=== PATIENT | female | born 1930 | race Caucasian/White ===

== ENCOUNTER 2017-05-03 18:13 | Emergency (ER) | payer OTHER ==
[2017-05-03 18:49] VITALS: TEMP 98.1; O2SAT 93
--- NOTE | 2017-05-03 19:12 | EDPHY ---
H & P Stated Complaint: Tongue swelling x 4 hours Time Seen by Provider: 05/03/17 19:05 HPI/ROS: CHIEF COMPLAINT: Tongue swelling HISTORY OF PRESENT ILLNESS: This patient is an 87 year old female with a history of angioedema complaining of tongue swelling onset this afternoon around 3:30. She ate a sandwich and thought her tongue felt strange, so looked in the mirror and noted it was swollen. Her throat felt swollen as well. She has history of allergies to various medications. She has been taking Simvastatin for the last 2-3 years, and usually becomes allergic to medications after 2-3 years. She is currently taking Lasix, thyroid medication, and Atenolol as well. No recent change in medications. She plans to discontinue all four of her medications. She denies rash, shortness of breath, dizziness, chest pressure. REVIEW OF SYSTEMS: A 10 point review of systems was performed and is negative with the exception of the elements mentioned in the history of present illness. - Personal History Current Tetanus/Diphtheria Vaccine: Yes Current Tetanus Diphtheria and Acellular Pertussis (TDAP): Yes - Medical/Surgical History PMH: 1. Hypertension 2. Hyperlipidemia 3. Hypothyroid Hx Asthma: No Hx Chronic Respiratory Disease: No Hx Diabetes: No Hx Cardiac Disease: No Hx Renal Disease: No Hx Cirrhosis: No Hx Alcoholism: No Hx HIV/AIDS: No Hx Splenectomy or Spleen Trauma: No Other PMH: HTN, HYPERLIPIDEMIA, PNA - Social History Smoking Status: Never smoked Additional Social History: Lives in [place]. . Retired. - Physical Exam Exam: General Appearance: Alert, pleasant and smiling, no distress Eyes: Pupils equal and round, no periorbital swelling ENT, Mouth: Mucous membranes moist, no oral swelling. Tongue does not appear swollen. Neck: Normal inspection, no stridor Respiratory: Lungs are clear to auscultation, no wheezing Cardiovascular: Regular rate and rhythm Neurological: A&O, nonfocal, normal gait Skin: No hives Extremities: No swelling Psychiatric: Mood and affect normal Constitutional: Initial Vital Signs Temperature (C) 36.7 C 05/03/17 18:45 Heart Rate 79 05/03/17 18:45 Respiratory Rate 15 05/03/17 18:45 Blood Pressure 198/100 H 05/03/17 18:45 O2 Sat (%) 93 09/29/17 18:45 O2 Delivery Mode Room Air Allergies/Adverse Reactions: amlodipine Allergy (Severe, Verified 08/14/14 10:27) THROAT/TONGUE SWELLING erythromycin base Allergy (Severe, Verified 08/14/14 10:27) LOSS OF VISION lisinopril Allergy (Severe, Verified 08/14/14 10:27) THROAT/TONGUE SWELLING Penicillins Allergy (Severe, Verified 08/14/14 10:27) Anaphylaxis Sulfa (Sulfonamide Antibiotics) Allergy (Severe, Verified 08/14/14 10:27) Anaphylaxis sulfamethoxazole [From Bactrim] Allergy (Severe, Verified 08/14/14 10:27) Anaphylaxis trimethoprim [From Bactrim] Allergy (Severe, Verified 08/14/14 10:27) Anaphylaxis Home Medications: Medication Instructions Recorded Aspirin [Aspirin 81mg (*)] 81 mg PO DAILY 08/14/14 Atenolol [Tenormin 25 mg (*)] 25 mg PO DAILY 08/14/14 Ethacrynic Acid [Edecrin 25 MG (*)] 25 mg PO DAILY 08/14/14 Ibuprofen [Motrin (*)] 200 mg PO Q8 PRN 08/14/14 Levothyroxine [Synthroid 50 mcg 50 mcg PO DAILY06 08/14/14 (*)] Simvastatin [Zocor 10 mg] 10 mg PO DAILY18 08/14/14 Oseltamivir Phosphate [Tamiflu 75 75 mg PO BID #3 cap 08/17/14 mg (RX)] predniSONE 40 mg PO DAILY #8 tab 05/03/17 Medical Decision Making ED Course/Re-evaluation: 87 year old female presents with subjective tongue swelling onset this afternoon around 3pm. Physical exam unremarkable, no facial swelling, wheezes, or rash noted. Plan to administer 25mg PO Benadryl and 60mg PO Prednisone for symptom relief. 20:30 Reassessed patient. She is feeling better and the tongue swelling has almost completely resolved. Tongue continues to appear normal on exam. Plan to d/c home in good condition with prescriptions for Benadryl and Prednisone. Follow up and return precautions discussed. The patient is comfortable with this plan. Differential Diagnosis: Differential diagnosis includes though it is not limited to hives, laryngeal edema, bronchospasm, hypotension, angioedema. - Data Points Medications Given: Discontinued Medications Diphenhydramine HCl (Benadryl) 25 mg PO EDNOW ONE Stop: 05/03/17 19:23 Last Admin: 05/03/17 19:26 Dose: 25 mg Prednisone (Prednisone) 60 mg PO EDNOW ONE Stop: 05/03/17 19:23 Last Admin: 05/03/17 19:26 Dose: 60 mg Departure - Departure Disposition: Home, Routine, Self-Care Clinical Impression: Angioedema Qualifiers: Encounter type: initial encounter Qualified Code(s): T78.3XXA - Angioneurotic edema, initial encounter Condition: Good Instructions: Angioedema (ED) Additional Instructions: 1. Take 25mg Benadryl three times daily for the next three days. 2. Take your Prednisone as prescribed. 3. Follow up with your primary care provider Saturday for continued evaluation and for discussion of your medication regimen. 4. Return to the emergency department for shortness of breath, difficulty swallowing, difficulty breathing, rash, fever or other worsening of condition. Referrals: KANDACE LERNER [Other] - As per Instructions Prescriptions: predniSONE 40 mg PO DAILY #8 tab Report Scribed for: Jessa Messer Report Scribed by: Lor Mayorga Date of Report: 05/03/17 Time of Report: 19:08 Physician Review and Approval Statement: 05/03/17 19:08 Portions of this note were transcribed by a medical assistant secretary. I personally performed a history, physical exam, medical decision making, and confirmed accuracy of information the transcribed note.
[2017-05-03] MEDS ORDERED: predniSONE 20 MG TAB PO ONE (19:22)
[2017-05-03] MEDS ORDERED: diphenhydrAMINE 25 MG CAP PO ONE (19:22)
[2017-05-03 21:02] VITALS: BP 165/85; PULSE 61; RESP 16
== END 2017-05-03 21:01 | disposition home or self-care (01) ==
DX: T78.3XXA Angioneurotic edema, initial encounter (principal); I10 Essential (primary) hypertension; Z79.82 Long term (current) use of aspirin